=== PATIENT | male | born 1980 | race Caucasian/White ===

== ENCOUNTER → 2022-07-02 11:00 | Outpatient (CLI) | payer BC, SELFPAY ==
--- NOTE | ~2022-07-02 | XR_ITS ---
EXAMINATION: XR lumbar spine 2-3V DATE: 07/02/2022 11:26 INDICATION: Low back pain TECHNIQUE: Anteroposterior and lateral views of the lumbar spine, and cone-down lateral view of the l umbosacral junction were obtained. COMPARISON: None. FINDINGS: There is mild loss of intervertebral disc space height at L5-S1. The vertebral body heights and alignment are normal. There is no fracture. There is mild facet osteoarthritis of the lower lumb ar spine. The bowel gas pattern is normal. Surgical clips in the right upper quadrant are likely from prior cholecystectomy. IMPRESSION: 1. Mild lumbar spondylosis without acute findings. Reviewed, dictated and finalized at location A.
== END ==
PROVIDERS: PCP Family Medicine Sports Medicine; Visit Provider Physician Assistant
DX: M54.42 Lumbago with sciatica, left side (principal); G89.29 Other chronic pain; M47.896 Other spondylosis, lumbar region
CPT/HCPCS: 72100

== ENCOUNTER → 2022-08-29 13:55 | Outpatient (CLI) | payer BC, SELFPAY ==
--- NOTE | ~2022-08-29 | XR_ITS ---
XR hip LT min 2V 08/29/2022 14:15 Indication: Left hip pain Procedure: 2 views left hip Comparison: No prior studies for comparison. Findings: There is moderate osteoarthritis of the left hip. No fracture or traumatic malalignment. No significant soft tissue abnormality. No foreign bodies. Impression: 1: Moderate osteoarthritis of the left hip. Reviewed, dictated and finalized at location B. ICE PLUMBER Impression: 1: Moderate osteoarthritis of the left hip.
--- NOTE | ~2022-08-29 | XR_ITS ---
XR wrist LT min 3V DATE: 08/29/2022 14:14 INDICATION: Bilateral carpal tunnel syndrome TECHNIQUE: 4 views COMPARISON: None FINDINGS: No fracture or dislocation, periosteal reaction or bone destruction, joint space narrowing, erosive change or chondrocalcinosis. IMPRESSION: Negative Reviewed, dictated and finalized at location A. TRICIAN SHOP IMPRESSION: Negative
--- NOTE | ~2022-08-29 | XR_ITS ---
XR wrist RT min 3V DATE: 08/29/2022 14:15 INDICATION: Bilateral carpal tunnel syndrome TECHNIQUE: 4 views COMPARISON: None FINDINGS: There is a chronic bony ossicle near the tip of the ulnar styloid process. No recent fracture or dislocation, periosteal reaction or bone destruction. Joint spaces are preserve d. No erosive change or chondrocalcinosis. IMPRESSION: No significant abnormality Reviewed, dictated and finalized at location A. EMENT SPECIALIST IMPRESSION: No significant abnormality
== END ==
PROVIDERS: PCP Family Medicine Sports Medicine; Visit Provider Family Medicine Sports Medicine
DX: G56.03 Carpal tunnel syndrome, bilateral upper limbs (principal); M16.12 Unilateral primary osteoarthritis, left hip
CPT/HCPCS: 73110; 73502

== ENCOUNTER → 2022-09-19 09:49 | Outpatient (CLI) | payer BC, SELFPAY ==
--- NOTE | ~2022-09-19 | MR_ITS ---
MRI of the left hip Clinical history: Osteoarthritis Technique: Coronal T1-weighted, T2-weighted, proton density fat sat, and axial T1-weighted and proton -density fat-sat images were acquired through the pelvis. Coronal T2 weighted and proton density fat sat, sagittal proton density fat sat, and axial proton-density fat-saturated images were acquired thr ough the left hip. Findings: There is no fracture, avascular necrosis, transient osteoporosis of either hip. There is mo derate osteoarthritis of both hip joints. There is superior chondromalacia of both hip joints, with m ild subchondral cystic change in the superior acetabula bilaterally. Femoral head neck junction osteo phytes are present bilaterally, left worse than right. No significant hip joint effusions. No definit e left acetabular labral tear. SI joints appear unremarkable. Visualized musculature about the pelvis and left hip is unremarkable. No muscle atrophy or edema seen . Visualized tendons are intact. No evidence for bursitis. Bilateral fat-containing inguinal hernias are noted. IMPRESSION: Moderate osteoarthritis of both hip joints, left worse than right. Bilateral fat-containing inguinal hernias. Reviewed, dictated and finalized at location [] [employer]
== END ==
PROVIDERS: PCP Family Medicine Sports Medicine; Visit Provider Family Medicine Sports Medicine
DX: M16.0 Bilateral primary osteoarthritis of hip (principal)
CPT/HCPCS: 73721

== ENCOUNTER → 2022-11-26 16:28 | Outpatient (CLI) | payer BC, SELFPAY ==
--- NOTE | ~2022-11-26 | MR_ITS ---
EXAMINATION: MR lumbar spine wo con DATE: 11/26/2022 17:17 INDICATION: Low back pain. Lumbar radiculopathy. TECHNIQUE: Magnetic resonance imaging (MRI) of the lumbar spine was performed without intravenous con trast. Sequences included sagittal T2-weighted FSE, sagittal T2-weighted FS FSE, sagittal T1-weighted FSE, and axial T2-weighted FSE. COMPARISON: Lumbar spine radiographs 07/02/2022 FINDINGS: There is 8 degrees dextrocurvature of thoracolumbar spine. Vertebral body heights are yeimy l. There is mildly decreased disc height at L4-L5. The distal spinal cord signal intensity is normal. The conus medullaris is at T12-L1. The following disc levels are specifically discussed: L1-L2: The disc does not extend beyond the endplate margin. There is no facet joint osteoarthritis. T here is no neural foraminal stenosis. There is no central canal stenosis. L2-L3: The disc does not extend beyond the endplate margin. There is mild bilateral facet joint osteo arthritis. There is no neural foraminal stenosis. There is no central canal stenosis. L3-L4: The disc does not extend beyond the endplate margin. There is no facet joint osteoarthritis. T here is no neural foraminal stenosis. There is no central canal stenosis. L4-L5: There is a large left central and subarticular zone extrusion. There is mild left facet joint osteoarthritis. There is no neural foraminal stenosis. There is moderate central canal stenosis. Ther e is severe stenosis of left lateral recess. L5-S1: There is a central protrusion with annular fissure. There is no facet joint osteoarthritis. Th ere is no neural foraminal stenosis. There is mild central canal stenosis. IMPRESSION: 1. Large extrusion at L4-L5 with moderate central canal stenosis and severe stenosis of left lateral recess. Reviewed, dictated and finalized at location A. GENCY MAN IMPRESSION: 1. Large extrusion at L4-L5 with moderate central canal stenosis and severe shane nosis of left lateral recess.
== END ==
PROVIDERS: PCP Family Medicine Sports Medicine; Visit Provider Family Medicine Sports Medicine
DX: M79.662 Pain in left lower leg (principal); M54.16 Radiculopathy, lumbar region; M51.26 Other intervertebral disc displacement, lumbar region
CPT/HCPCS: 72148